=== PATIENT | female | born 1995 | race Caucasian/White ===

== ENCOUNTER 2025-09-18 08:23 | Inpatient (IN) ==
[2025-09-18] MEDS ORDERED: fentaNYL 100 MCG/2 ML VIAL IVP PRN (08:31)
[2025-09-18] MEDS ORDERED: TERBUTALINE 1 MG/ML VIAL SUBQ PRN (08:31)
[2025-09-18] MEDS ORDERED: LACTATED RINGERS 1,000 ML IV PRN (08:31)
[2025-09-18] MEDS ORDERED: CARBOPROST TROMETHAMINE 250 MCG/ML VIAL IM PRN (08:31)
[2025-09-18] MEDS ORDERED: TRANEXAMIC ACID IN NACL 1,000 MG/100 ML BAG IV PRN (08:31)
[2025-09-18] MEDS ORDERED: OXYTOCIN 10 UNIT/ML VIAL IM PRN (08:31)
[2025-09-18] MEDS ORDERED: LABETALOL 20 MG/4 ML SYRINGE IVP PRN ×5 (08:31→17:23)
[2025-09-18] MEDS ORDERED: SODIUM CHLORIDE FLUSH 0.9% 10 ML SYRINGE IVP PRN (08:31)
[2025-09-18] MEDS ORDERED: METHYLERGONOVINE 0.2 MG/ML VIAL IM PRN (08:31)
[2025-09-18] MEDS ORDERED: hydrALAZINE INJ 20 MG/ML VIAL IVP PRN ×4 (08:31→17:23)
[2025-09-18] MEDS ORDERED: METOCLOPRAMIDE 10 MG TABLET PO PRN (08:31)
[2025-09-18] MEDS: SODIUM CHLORIDE FLUSH 0.9% 10 ML SYRINGE IVP SCH (08:56)
[2025-09-18] MEDS: CALCIUM CARBONATE CHEW 500 MG TABLET PO PRN (09:13)
--- NOTE | 2025-09-18 09:55 | HISTORY & PHYSICAL EXAMINATION ---
Admit History Smoking Status: Never smoker Other Maternal History Other Maternal History: HPI: Heather Iqbal is a 30 yo at 39w0d who is admitted for elective induction of labor. Reports feeling well today. Has had some contractions on and off. Denies LOF, VB. + FM. monitoring form from record: LMP: 12/19/24 DEEPTHI by LMP: 09/25/25 US: on 02/26, 9w5d c/w LMP (US DEEPTHI 09/26/25) Final DEEPTHI: 09/25/25 - H/o anxiety/depression/PTSD on lamotrogine, stopped lamictal around 24 weeks, see's counselor every other week, increased to weekly. Pays out of pocket for psychiatrist via [facility] Referral for psychiatry through [facility] placed. - Rh neg - Rhogam given 07/10 - Starting BMI 17.9 - 18lb weight gain between confirmation and 1st OB visit. Currently +36 pounds. Appropriate weight gain in . - S<D - growth US ordered 07/22. (EFW was 46%tile on 07/05, 55th percentile on 07/31. 10: 35 weeks, 51st percentile, 2663 g. has no care plan for her younger 2 children for delivery. strongly encouraged that she figure this out when I saw her 08/16/25. Gap in care due to insurance. Pre- Weight: 98 BMI: 17.9 Blood type: O- Antibody:positive probably due to RHogam 03/09/25. negative on 3rd tri labs (07/09). CBC: H/H/PLT- 11.3/34.4/214 RUB:immune VZV:immune HBsAg: Negative HepC: NR RPR/AB-EIA: NR HIV: NR PAP: 07/2024 - normal per pt GC/CT: Negative HSV: denies in self and partner Genetic testing: NIPT- Negative Covid:Declined Flu: Declined FAS: Placenta: posterior without previa Cord: 3VC JOHANN: 15.2 cm 37% EFW: 464g 57% Left EIF and possible renal pelvis dilatation, f/u US ordered F/u US 07/05: "mild EIF", no renal pelvis dilation. Incidental nuchal cord. 50gm OGCT: 60 3HR GTT: Rhogam: 07/10/25 TDAP: 07/20/25 Breast Pump:has ordered one 3rd trimester: 10.6/33.4 263 RPR: NR baseline EPDS: 15 RSV: 08/31 GBS:Collected 08/31 Delivery plan:Possible IOL at 39 weeks if still Contraception: depot or pill. feels she has one more baby left in her. PE: Vitals signs reviewed Gen: NAD Resp: non labored respirations Abd: gravid, non tender. Ext: no LE edema SVE: 50/-2 Bedside US: cephalic presentation confirmed monitoring: FHTs: 120s bpm baseline, + accel, - decel, mod variability Ventress: irregular FHTs: Cat 1 Labs: T&S, CBC, CMP pending A/P: Heather Iqbal is a 30 yo at 39w0d who is admitted for elective induction of labor. - elective IOL - GBS neg - Rh neg Consents for IOL were previously reviewed and signed today. Discussed IOL with pitfiona with possible AROM with next SVE and she does agree. Pain management per her request - she does plan for epidural. Jeffery Sesay MD Meds/Allgy Home Medications Ambulatory Orders Medication Instructions Recorded Confirmed vits no.126-ferrous fum tab PO 02/19/2509/06 28 mg iron-folic acid 800 mcg tablet (Classic ) ferrous sulfate [Iron (ferrous PO 08/02/25 09/06/25 sulfate)] Allergies Allergies Allergy/AdvReac Type Severity Reaction Status Date / Time sulfamethoxazole (From Allergy Intermediate Emesis Verified 09/06/25 10:35 Septra) trimethoprim (From Julra) Allergy Intermediate Emesis Verified 09/06/25 10:35 [facility] Active Problems All Active Problems (Updated 08/31/25 @ 16:52 by Diane Zhou MA) Anemia affecting (Acute) Anxiety (Acute) Depression (Acute) Exercise-induced asthma (Acute) Positive test (Acute) PTSD (post-traumatic stress disorder) (Acute) Pyelectasis of fetus on ultrasound (Acute) Supervision of normal (Acute) Uterine size date discrepancy (Acute) Medical History Medical History (Updated 08/31/25 @ 16:52 by Diane Zhou MA) Encounter for screening for Streptococcus B Family History Family History (Updated 02/19/25 @ 11:15 by Luann Isidro RN) Grandfather Lymphoma Aunt Breast cancer Mother Breast cancer Ron's disease Cervical cancer Maternal grandmother Diabetes Uncle Seizure Father Schizophrenia Mental disorder Brother Schizophrenia Mental disorder Social History Social History (Updated 08/02/25 @ 10:13 by Ami Aldana MA) Smoking Status: Never smoker Do you dip or chew tobacco?: No Do you vape?: No Patient requests smoking cessation consult: No Initiate information on smoking cessation: No Do you feel safe in your home environment?: Yes History of physical, verbal, emotional, or financial abuse?: No ETOH Use: None Substance Use: denies use Are you sexually active?: Yes POLST Patient has POLST: No Plan for Labor Plan For Labor I expect patient to be DC'd or transferred within 96 hours.: Yes
[2025-09-18 09:59] LABS: HCT - HEMATOCRIT 33.0 % (37.0-47.0); HGB - HEMOGLOBIN 10.7 g/dL (12.0-16.0); MEAN PLATELET VOLUME 10.3 fL (7.9-10.8); NRBC ABSOLUTE COUNT (AUTO) 0.00 x10^3/uL; NUCLEATED RED BLOOD CELLS AUTO 0.0 /100WBC; PLT - PLATELET COUNT 246 10^3/uL (130-450); RED CELL DISTRIBUTION WIDTH 13.9 % (12.0-15.0)
[2025-09-18] MEDS: OXYTOCIN/SODIUM CHLORIDE 500 ML IV SCH (10:12)
[2025-09-18 10:15] LABS: ALT ALANINE AMINOTRANSFERASE 9.0 IU/L (10-60); AST ASPARTATE AMINOTRANSFERASE 16.0 IU/L (10-42); BUN - BLOOD UREA NITROGEN 10.0 mg/dL (6-20); CARBON DIOXIDE - CO2 24.0 mmol/L (21-32); CREATININE 0.5 mg/dL (0.6-1.3); GFR - MDRD 144.0 (>89)
[2025-09-18] MEDS: LACTATED RINGERS 1,000 ML IV SCH (10:15)
--- NOTE | 2025-09-18 11:32 | PHARMACY PROGRESS NOTE ---
Best Possible Medication History Admit Date and Time: 09/18/25 0831 Home Medications Medication Instructions Recorded Confirmed Type vits no.126-ferrous fum 1 tab PO DAILY 09/18/25 History 28 mg iron-folic acid 800 mcg tablet (Classic ) ferrous sulfate 1 tab PO DAILY 08/02/2508/23 History Processed by: Pharmacy (Medication reconciliation completed by Manager EntryKinjal) Medications reviewed in ED?: No Medication History completed: Yes Patient Interview: Completed Secondary Source(s): Insurance records [facility] Statement: As the person ultimately responsible for medication therapy, providers are able to order a medication from an existing home medication list in [facility] via the "Reconcile Routine" prior to Confirmation of that medication by business support administrator. Such practice is discouraged except when the physician, in their clinical judgment, deems that a medical need exists for a medication without regard to previous use.
[2025-09-18] MEDS ORDERED: BUPIVACAINE 0.25% PF 10 ML VIAL ONE (11:41)
[2025-09-18] MEDS ORDERED: fentaNYL 100 MCG/2 ML VIAL ONE (11:41)
[2025-09-18] MEDS ORDERED: ROPIVACAINE 0.2% 200 MG/100 ML BAG EP ONE (11:44)
--- NOTE | 2025-09-18 12:55 | PROVIDER PROGRESS NOTE ---
Labor Progress Note Labor Progress Note Labor Progress Note/Additional Text: Heather is now comfortable s/p epidural placement. Reviewed risks of AROM and she did agree to proceed. SVE /-2, AROM with large amount of clear fluid. FHTs Cat 1. Plan to continue pitocin augmentation. Repeat SVE in 2 hours or sooner PRN. Jeffery Sesay MD
--- NOTE | 2025-09-18 13:00 | ANESTHESIA PROCEDURE NOTE ---
Pre-Anesthesia VS, & Labs Diagnosis Surgical Diagnosis:: Labor pain Procedure Procedure: Labor epidural Is Patient ?: Yes Lab Results Current Lab Results: Laboratory Tests 09/18/25 09:45: WBC 13.3 H, RBC 3.71 L, Hgb 10.7 L, Hct 33.0 L, MCV 88.9, MCH 28.8, MCHC 32.4, RDW 13.9, Plt Count 246, MPV 10.3, Neut # (Auto) 9.8 H, Lymph # (Auto) 2.4, [place] # (Auto) 0.8, Eos # (Auto) 0.1, Baso # (Auto) 0.1, Absolute Nucleated RBC 0.00, Nucleated RBC % 0.0, Sodium 134 L, Potassium 3.9, Chloride 103, Carbon Dioxide 24, Anion Gap 7.0, BUN 10, Creatinine 0.5 L, Estimated GFR (MDRD) 144, Glucose 83, Calcium 8.7, Total Bilirubin 0.3, AST 16, ALT 9 L, A lkaline Phosphatase 167 H, Total Protein 5.9 L, Albumin 3.4, Globulin 2.5, Albumin/Globulin Ratio 1.4, Blood Type O NEGATIVE, Antibody Screen POSITIVE, MILDRED, IgG Specific Not Reportable, MILDRED, Polyspecific NEGATIVE, MILDRED, C3d Specific Not Reportable Lab results reviewed: Yes 09/18/25 09:45 09/18/25 09:45 Meds/Allgy Home Medications Ambulatory Orders Medication Instructions Recorded Confirmed vits no.126-ferrous fum 1 tab PO DAILY 09/18/25 28 mg iron-folic acid 800 mcg tablet (Classic ) ferrous sulfate 1 tab PO DAILY 08/02/2508/23 Allergies Allergies Allergy/AdvReac Type Severity Reaction Status Date / Time sulfamethoxazole (From Allergy Intermediate Emesis Verified 09/06/25 10:35 Sept) trimethoprim (From ) Allergy Intermediate Emesis Verified 09/06/25 10:35 [facility] Active Problems All Active Problems Encounter for induction of labor (Acute) Anemia affecting (Acute) Pyelectasis of fetus on ultrasound (Acute) Uterine size date discrepancy (Acute) Supervision of normal (Acute) Positive test (Acute) Exercise-induced asthma (Acute) PTSD (post-traumatic stress disorder) (Acute) Depression (Acute) Anxiety (Acute) Medical History Medical History Encounter for screening for Streptococcus B Family History Family History Grandfather Lymphoma Aunt Breast cancer Mother Breast cancer Ron's disease Cervical cancer Maternal grandmother Diabetes Uncle Seizure Father Schizophrenia Mental disorder Brother Schizophrenia Mental disorder Social History Social History Smoking Status: Never smoker Do you dip or chew tobacco?: No Do you vape?: No Patient requests smoking cessation consult: No Initiate information on smoking cessation: No Do you feel safe in your home environment?: Yes History of physical, verbal, emotional, or financial abuse?: No ETOH Use: None Substance Use: denies use Are you sexually active?: Yes POLST Patient has POLST: No Anesthesia Exam (Expanded) Exam General: Alert and Oriented x3 Dental: WNL Mouth Openin Fingerbreadth Neck Mobility: Normal Mallampati classification: II Thyromental Distance: 4-6 cm Respiratory: Lungs clear Cardiovascular: Regular rate Mental/Cognitive Status: Alert/Oriented X3 Exam Constitutional normal general appearance Neck/C-Spine cervical full ROM noted Cardiovascular normal heart rate noted Back/Pelvis spine normal to inspection, no lumbar spine tenderness and lumbar spine ROM normal Plan Plan Anesthesia Type: Epidural Consent for Procedure(s) Verified and Reviewed: Yes Code Status: Attempt Resuscitation ASA Classification ASA classification: 2-Mild systemic disease Is this case an emergency?: Yes
[2025-09-18] MEDS: ONDANSETRON ODT 4 MG TABLET PO PRN (14:50)
[2025-09-18] MEDS ORDERED: NALBUPHINE 10 MG/ML AMP IVP PRN (15:09)
[2025-09-18] MEDS ORDERED: ROPIVACAINE 0.2% 200 MG/100 ML BAG EP PRN (15:09)
[2025-09-18] MEDS ORDERED: ONDANSETRON 4 MG/2 ML VIAL IVP PRN (15:09)
[2025-09-18] MEDS ORDERED: NALOXONE 0.4 MG/ML VIAL IVP PRN ×2 (15:09→17:23)
[2025-09-18] MEDS ORDERED: METOCLOPRAMIDE 10 MG/2 ML VIAL IVP PRN (15:09)
[2025-09-18] MEDS ORDERED: ePHEDrine 50 MG/ML VIAL IVP PRN (15:09)
[2025-09-18] MEDS: OXYTOCIN/SODIUM CHLORIDE 500 ML IV PRN (17:13)
[2025-09-18] MEDS ORDERED: HYDROCORTISONE 1% CREAM 28 GM TUBE TOP PRN (17:23)
[2025-09-18] MEDS ORDERED: OXYTOCIN/SODIUM CHLORIDE 500 ML IV PRN (17:23)
[2025-09-18] MEDS ORDERED: SIMETHICONE CHEW 80 MG TABLET PO PRN (17:23)
[2025-09-18] MEDS ORDERED: LABETALOL 5 MG/1 ML 20 ML MDV IVP PRN (17:23)
[2025-09-18] MEDS ORDERED: WITCH HAZEL/GLYCERIN 1 PAD TOP PRN (17:23)
--- NOTE | 2025-09-18 17:23 | DELIVERY NOTE ---
OB Labor and Delivery Note Labor Labor: Induced by oxytocin Delivery Method Delivery Method: Spontaneous vaginal delivery Presentation Presentation: Vertex and [place] - right occiput anterior Nuchal Cord Nuchal Cord: None Amniotic Fluid Description Amniotic Fluid Description: Clear Episiotomy Type Episiotomy Type: None Laceration Laceration: Labial (small bilateral labial lacerations, hemostatic.) Delivery Outcome Delivery Date: 09/18/25 Delivery Time: 17:09 Delivery Outcome: Livebirth [place]: Placed in direct skin contact with mother, Stimulated and Warmed [place] sex: Male Cord Cord: 3 vessels Placenta Placenta: Intact Estimated Blood Loss Estimated Blood Loss (in cc): 100 Post Delivery Events Post Delivery Events: No post delivery events Delivery Comments (Free Text/Narrative) Delivery Comments (Free Text/Narrative): I was called to the bedside for patient complete and ready to start pushing. She pushed with excellent effort over just a couple of contractions. The anterior shoulder delivered easily with maternal effort and gentle downward pressure followed by the posterior shoulder and the remainder of the body. The was placed on the Heather's abdomen. After 60 sec the cord was clamped times two and cut by the father. Cord blood collected. Pitocin was started. The placenta was delivered intact. Good uterine tone noted. Perineal he mostasis noted. Jeffery Sesay MD
[2025-09-18] MEDS: ACETAMINOPHEN 500 MG TABLET PO PRN (19:40)
[2025-09-18] MEDS: IBUPROFEN 600 MG TABLET PO PRN (19:41)
[2025-09-18] MEDS ORDERED: RHO(D) IMMUNE GLOBULIN 300 MCG SYRINGE IVP ONE (22:34)
[2025-09-18] MEDS: oxyCODONE 5 MG TABLET PO PRN (23:20)
[2025-09-18] MEDS: DOCUSATE SODIUM 100 MG CAPSULE PO SCH (23:21)
[2025-09-19] MEDS: ACETAMINOPHEN 500 MG TABLET PO PRN (03:35)
[2025-09-19] MEDS: LACTATED RINGERS 500 ML IV ONE (08:57)
--- NOTE | 2025-09-19 12:35 | Discharge Summary ---
Discharge Summary Admit Date: 09/18/25 Discharge Date: 09/19/25 Discharging Provider: Alexi Rai Code Status: Attempt Resuscitation DIAGNOSES Admission Diagnoses: 39 weeks gestation HPI History of Present Illness: Subjective Patient reports she is doing well. Lochia appropriate. Denies heavy bleeding. Ambulating without issue. Pelvic and abdominal pain well-controlled. Tolerating oral intake. Diet: Regular. Voiding without difficulty. Passing flatus. Denies BM. Patient is bonding with baby [in room] Breast feeding going okay, but some trouble latching. Denies feeling lightheaded, dizzy or excessively fatigued. Objective General: Alert, oriented, no apparent distress. Lungs: No increased work of breathing. Abdomen: Uterus firm. Below umbilicus. No guarding or rebound. HOSPITAL COURSE Hospital Course: Patient is admitted at 39 weeks gestation for induction of labor. Had oxytocin and amniotomy induction. Epidural for pain control. Spontaneous vaginal delivery was uncomplicated. She wanted to go home, so she and her were discharged on day 1. ALLERGIES Allergies Allergy/AdvReac Type Severity Reaction Status Date / Time sulfamethoxazole (From Allergy Intermediate Emesis Verified 09/06/25 10:35 Sept) trimethoprim (From ) Allergy Intermediate Emesis Verified 09/06/25 10:35 MEDICATIONS Ambulatory Orders Medication Instructions Recorded Confirmed vits no.126-ferrous fum 1 tab PO DAILY 09/18/25 28 mg iron-folic acid 800 mcg tablet (Classic ) ferrous sulfate 1 tab PO DAILY 08/02/25 10/07/16 PHYSICAL EXAM AT DISCHARGE Vital Signs: Vital Signs x48h Temp Pulse Resp BP Pulse Ox 09/19/25 08:17 36.6 C 61 17 93/59 L 95 LABS 09/18/25 09:45 09/18/25 09:45 FOLLOW UP Follow Up: With [facility] women's care in 1 week TIME SPENT Time Spent in Discharge (Minutes): 30 Discharge Plan Discharge Patient Disposition: Home, Self Care Prescriptions: Continued Classic 28 mg iron- 800 mcg tablet 1 tab PO DAILY ferrous sulfate [Iron (ferrous sulfate)] 1 tab PO DAILY Activity Restrictions: Additional Comments Diet: Regular Print Language: Mohawk Patient Instructions: After a Vaginal , Depression
[2025-09-19] MEDS: RHO(D) IMMUNE GLOBULIN 300 MCG SYRINGE IVP ONE (15:52)
[2025-09-19 18:36] VITALS: BP 127/73; TEMP 97.7; O2SAT 98
--- NOTE | 2025-09-19 18:55 | ANESTHESIA POST OP EVALUATION ---
Anesthesia Post Eval Post Anesthesia Eval Vitals: Last Vital Signs Temp 36.5 C 09/19/25 18:31 Pulse 68 09/19/25 18:31 Resp 16 09/19/25 18:31 BP 127/73 09/19/25 18:31 Pulse Ox 98 09/19/25 18:31 Other Details/Therapies Other Details/Therapies: Asked to see patient for a headache, possible post dural puncture headache. On arrival, patient was sitting up in bed. She describes headache as very mild, dull with generalized head. It improved after a dose of oxycodone. There was no dural puncture with the epidural needle. It is unlikely this is a post dural puncture headache, but will consider epidural blood patch if symptoms worsen. I discussed epidural blood patch with the patient and she agrees with conservative management.
--- NOTE | 2025-09-19 19:12 | Labor Flowsheet ---
Labor Flowsheet Datetime Report Generated by CPN: 09/19/2025 19:12 Datetime: 09/19/2025 18:33 VITAL SIGNS NBP Sys/Rhiannon/Mean (mmHg): 127 : 73 : 84 Pulse: 71 Datetime: 09/18/2025 19:18 SpO2 (%): 95 Datetime: 09/18/2025 19:14 Stage of : Recovery Datetime: 09/18/2025 18:45 Epidural Procedure Other: Cath Removed; Cath Intact Datetime: 09/18/2025 17:33 Membranes Ruptured Date/Time: 09/18/2025 12:48 Datetime: 09/18/2025 17:09 Monitor Interventions for FHR: Ultrasound Adjusted FHR Baseline Changes: Bradycardia Comments: terminal bradycardia, FHR at 70bpm with STAGE 2 Stage 2 Comments: Datetime: 09/18/2025 17:02 I/O Interventions: [place] Discontinued Datetime: 09/18/2025 17:00 UTERINE ACTIVITY Monitor Mode: External Frequency (min): 1.5-2 Quality: Strong Duration (sec): 60-100 Pattern: Tachysystole: > 5 Contractions in 10 Minutes Resting Tone (Palpate): Relaxed Pitocin Checklist: At Least 1 Acceleration of 15 bpm x 15 Seconds in 30 Minutes or Adequate Variability; Uterus Palpates Soft between Contractions ASSESSMENT A Monitor Mode: External US FHR Baseline Rate : 110 Variability: Moderate 6-25 bpm Accelerations: 15X15 Decelerations: Early; Late; Variable Category: Category II Datetime: 09/18/2025 16:52 Patient Care Comments: Dr Shama Called for delivery Datetime: 09/18/2025 16:51 VAGINAL EXAM Dilatation (cm): 10.0 Effacement (%): 100 Station: 2 Exam by: Melina Mohan RN Datetime: 09/18/2025 16:48 MEDICATIONS Pitocin (milliunits): Decreased to @ 10 Datetime: 09/18/2025 15:45 COMMUNICATION Communication: RN at Bedside Datetime: 09/18/2025 15:20 Patient Position/Activity: Left Extreme Datetime: 09/18/2025 14:34 Temperature (C): 36.7 Temperature Route: Oral Datetime: 09/18/2025 14:12 Monitor Interventions for UA: [place] Adjusted Datetime: 09/18/2025 13:00 Oxygen Method: Room Air Datetime: 09/18/2025 12:48 Membranes Rupture Method: Artificial Amniotic Fluid Color: Clear Amniotic Fluid Amount: Large Amniotic Fluid Odor: Normal Datetime: 09/18/2025 12:10 ANESTHESIA Epidural Procedure: Test Dose Datetime: 09/18/2025 11:56 PROCEDURE TIME OUT Procedure Verify: Correct Side and Site are Marked; Correct Patient Position Datetime: 09/18/2025 11:27 Anesthesia Comments: Anesthesia called for epidural placement Datetime: 09/18/2025 11:26 PATIENT CARE IV/Blood Work: IV Bolus Started Datetime: 09/18/2025 09:27 Vaginal Bleeding: None Cervix, Position: Midposition
== END 2025-09-19 19:00 | disposition home or self-care (01) | DRG 807 ==
LOC: FBP 08:23 → WFO 08:23 → FBP 08:24
PROVIDERS: ADMIT Obstetrics & Gynecology; ATTEND Obstetrics & Gynecology
DX: O99.344 Other mental disorders complicating childbirth; O70.0 First degree perineal laceration during delivery; F41.9 Anxiety disorder, unspecified; Z37.0 Single live birth; F43.10 Post-traumatic stress disorder, unspecified; F32.A Depression, unspecified; Z3A.39 39 weeks gestation of pregnancy